=== PATIENT | female | born 1990 | race Caucasian/White ===

== ENCOUNTER 2017-09-22 16:53 | Inpatient (IN) | payer BC, MEDICARE ==
[~2017-09-22] VITALS: Ht 160 cm; Wt 104.5 kg
[2017-09-22] MEDS: LACTATED RINGERS 1,000 ML IV SCH ×2 (01:30→23:31)
[2017-09-22 17:02] VITALS: BP 139/101
[2017-09-22] MEDS ORDERED: PREN1TAB60 PO (17:36)
[2017-09-22 17:49] LABS: BASOPHILS # (AUTO) 0.01 x10^3/uL (0-0.1); BASOPHILS % (AUTO) 0 % (0-1); EOSINOPHILS # (AUTO) 0.06 x10^3/uL (0-0.4); EOSINOPHILS % (AUTO) 1 % (1-7); LYMPHOCYTES # (AUTO) 1.33 x10^3/uL (1-3.4); LYMPHOCYTES % (AUTO) 15 % (22-44); MD NO; MEAN CORPUSCULAR HEMOGLOBIN 27.6 pg (27.0-34.8); MEAN CORPUSCULAR HGB CONC 33.3 g/dL (32.4-35.8); MEAN CORPUSCULAR VOLUME 82.9 fL (80-100); MONOCYTES # (AUTO) 0.67 x10^3/uL (0.2-0.8); MONOCYTES % (AUTO) 7 % (2-9); NEUTROPHILS # (AUTO) 7.12 x10^3/uL (1.8-6.8); NEUTROPHILS % (AUTO) 77 % (42-75); PLATELET COUNT 216 x10^3/uL (130-400); RED CELL DISTRIBUTION WIDTH 13.1 % (9.6-15.2)
[2017-09-22 17:57] LABS: ALANINE AMINOTRANSFERASE 13 U/L (12-78); ALBUMIN 2.8 g/dL (3.4-5.0); ANION GAP 10 mmol/L (5-15); CALCIUM 8.5 mg/dL (8.5-10.1); CHLORIDE 106 mmol/L (98-107); CREATININE 0.51 mg/dL (0.55-1.02)
[2017-09-22 17:59] LABS: ALKALINE PHOSPHATASE 88 U/L (45-117); BILIRUBIN, DIRECT < 0.1 mg/dL (0.1-0.2); BILIRUBIN,TOTAL 0.3 mg/dL (0.2-1.0); TOTAL PROTEIN 6.5 g/dL (6.4-8.2)
[2017-09-22 18:00] LABS: MICROSCOPIC INDICATED
[2017-09-22 18:08] LABS: BARBITURATE SCREEN, URINE Negative (Negative); BENZODIAZEPINE SCREEN, URINE Negative (Negative); CANNABINOID SCREEN, URINE Negative (Negative); COCAINE SCREEN, URINE Negative (Negative); METHADONE SCREEN, URINE Negative (Negative); OPIATE SCREEN, URINE Negative (Negative); PROTEIN/CREATININE RATIO,URINE 169 (0-200); TOTAL PROTEIN,URINE RANDOM 10 mg/dL (0-12)
[2017-09-22 18:10] LABS: AMPHETAMINE SCREEN, URINE Negative (Negative)
[2017-09-22] MEDS ORDERED: OXYTOCIN 30U/ 0.9% NaCL 500ML 500 ML IV SCH (20:23)
[2017-09-22] MEDS ORDERED: LACTATED RINGERS 1,000 ML IV SCH ×2 (20:23→20:30)
[2017-09-22] MEDS ORDERED: MISOPROSTOL 200 MCG TABLET ONE (20:24)
[2017-09-22] MEDS ORDERED: OXYTOCIN 30U/ 0.9% NaCL 500ML 500 ML ONE (20:24)
[2017-09-22] MEDS ORDERED: METOCLOPRAMIDE 5 MG/ML, 2ML ONE (20:27)
[2017-09-22] MEDS ORDERED: SODIUM CITRATE/CITRIC ACID 30 ML UDC ONE ×2 (20:27→20:28)
[2017-09-22] MEDS ORDERED: NEWBORN KIT ONE (20:27)
[2017-09-22] MEDS ORDERED: LACTATED RINGERS 1,000 ML IVBOLUS ONE (20:30)
[2017-09-22] MEDS ORDERED: METOCLOPRAMIDE 5 MG/ML, 2ML IV ONE (20:30)
[2017-09-22] MEDS ORDERED: SODIUM CITRATE/CITRIC ACID 30 ML UDC PO ONE (20:30)
[2017-09-22] MEDS ORDERED: morphine SULFATE/PF 0.5 MG/ML, 10ML ONE (20:58)
[2017-09-22] MEDS ORDERED: OXYTOCIN 10 UNITS/ML, 1ML ONE (20:59)
[2017-09-22] MEDS ORDERED: WATER-INJECTION,STERILE 10 ML IV ONE (20:59)
[2017-09-22] MEDS ORDERED: PHENYLEPHRINE 10 MG/ML ONE (20:59)
[2017-09-22] MEDS ORDERED: EPHEDRINE 50 MG/ML, 1ML ONE (20:59)
[2017-09-22] MEDS ORDERED: CEFAZOLIN 1,000 MG ONE (20:59)
[2017-09-22] MEDS ORDERED: ONDANSETRON 2MG/ML, 2ML ONE ×2 (20:59→22:44)
[2017-09-22 21:05] LABS: BASOPHILS # (AUTO) 0.05 x10^3/uL (0-0.1); BASOPHILS % (AUTO) 0 % (0-1); EOSINOPHILS # (AUTO) 0.06 x10^3/uL (0-0.4); EOSINOPHILS % (AUTO) 1 % (1-7); LYMPHOCYTES % (AUTO) 14 % (22-44); MD NO; MEAN CORPUSCULAR HGB CONC 33.1 g/dL (32.4-35.8); MEAN CORPUSCULAR VOLUME 81.8 fL (80-100); MEAN PLATELET VOLUME 8.2 fL (7.4-10.4); MONOCYTES # (AUTO) 0.64 x10^3/uL (0.2-0.8); MONOCYTES % (AUTO) 6 % (2-9); NEUTROPHILS # (AUTO) 9.14 x10^3/uL (1.8-6.8); NEUTROPHILS % (AUTO) 80 % (42-75); PLATELET COUNT 231 x10^3/uL (130-400); RED BLOOD COUNT 4.48 x10^6/uL (3.82-5.3); RED CELL DISTRIBUTION WIDTH 13.6 % (9.6-15.2)
[2017-09-22] MEDS ORDERED: MISOPROSTOL 200 MCG TABLET PR PRN (22:00)
[2017-09-22] MEDS ORDERED: SIMETHICONE 80 MG CHEW TAB PO PRN (22:00)
[2017-09-22] MEDS ORDERED: morphine SULFATE 10 MG/ML, 1ML IVPush PRN ×2 (22:00)
[2017-09-22] MEDS ORDERED: ONDANSETRON 2MG/ML, 2ML IV PRN (22:00)
[2017-09-22] MEDS ORDERED: MEASLES,MUMPS&RUBELLA VACC/PF 0.5 ML SQ-VACC PRN (22:00)
[2017-09-22] MEDS ORDERED: DIPH,PERTUSS(ACELL),TET VAC/PF NC IM-VACC PRN (22:00)
[2017-09-22] MEDS ORDERED: CARBOPROST TROMETHAMINE 250 MCG/ML, 1ML IM PRN (22:00)
[2017-09-22] MEDS ORDERED: OXYcodone/APAP 5/325MG TABLET PO PRN (22:00)
[2017-09-22] MEDS: OXYTOCIN 30U/ 0.9% NaCL 500ML 500 ML IV SCH (23:31)
[2017-09-23] MEDS ORDERED: KETOROLAC 30 MG/1 ML ONE (00:58)
[2017-09-23] MEDS: KETOROLAC 30 MG/1 ML IV SCH ×4 (01:00→19:04)
[2017-09-23 01:25] VITALS: BP 126/83
[2017-09-23 03:55] VITALS: BP 139/84
[2017-09-23] MEDS: ACETAMINOPHEN 325 MG TABLET PO PRN ×3 (04:58→13:19)
[2017-09-23] MEDS: OXYcodone IR 5MG TABLET PO PRN ×4 (04:58→19:05)
[2017-09-23] MEDS: LACTATED RINGERS 1,000 ML IV SCH ×5 (05:00→21:40)
[2017-09-23 07:16] LABS: BASOPHILS # (AUTO) 0.02 x10^3/uL (0-0.1); BASOPHILS % (AUTO) 0 % (0-1); EOSINOPHILS # (AUTO) 0.03 x10^3/uL (0-0.4); EOSINOPHILS % (AUTO) 0 % (1-7); LYMPHOCYTES # (AUTO) 1.15 x10^3/uL (1-3.4); LYMPHOCYTES % (AUTO) 12 % (22-44); MD NO; MEAN CORPUSCULAR HEMOGLOBIN 26.9 pg (27.0-34.8); MEAN CORPUSCULAR HGB CONC 32.6 g/dL (32.4-35.8); MEAN CORPUSCULAR VOLUME 82.5 fL (80-100); MEAN PLATELET VOLUME 7.9 fL (7.4-10.4); MONOCYTES # (AUTO) 0.51 x10^3/uL (0.2-0.8); MONOCYTES % (AUTO) 5 % (2-9); NEUTROPHILS # (AUTO) 7.71 x10^3/uL (1.8-6.8); NEUTROPHILS % (AUTO) 82 % (42-75); PLATELET COUNT 185 x10^3/uL (130-400); RED BLOOD COUNT 3.73 x10^6/uL (3.82-5.3); RED CELL DISTRIBUTION WIDTH 13.6 % (9.6-15.2)
[2017-09-23] MEDS: OXYTOCIN 30U/ 0.9% NaCL 500ML 500 ML IV SCH ×2 (07:40→17:40)
[2017-09-23 08:00] VITALS: BP 137/90
[2017-09-23] MEDS: DOCUSATE 100 MG CAPSULE PO PRN ×2 (08:51→19:04)
[2017-09-23] MEDS: PRENATAL VIT/IRON/FA 1 EACH TABLET PO SCH (08:51)
[2017-09-23] MEDS: DIPHENHYDRAMINE 50 MG CAPSULE PO PRN ×2 (09:54→21:28)
[2017-09-23 12:00] VITALS: BP 149/93
[2017-09-23 15:17] VITALS: BP_SYST 142; BP_SYST 145; BP_DIAS 92; BP_DIAS 93
[2017-09-23 20:00] VITALS: BP 134/87
[2017-09-24 00:10] VITALS: BP 117/80
[2017-09-24] MEDS: OXYcodone IR 5MG TABLET PO PRN ×2 (00:12→05:55)
[2017-09-24] MEDS: KETOROLAC 30 MG/1 ML IV SCH ×2 (00:54→07:30)
[2017-09-24 03:30] VITALS: BP 121/74
[2017-09-24] MEDS: OXYTOCIN 30U/ 0.9% NaCL 500ML 500 ML IV SCH (03:40)
[2017-09-24] MEDS: LACTATED RINGERS 1,000 ML IV SCH ×2 (03:40→05:40)
[2017-09-24] MEDS: DOCUSATE 100 MG CAPSULE PO PRN (07:30)
[2017-09-24] MEDS: PRENATAL VIT/IRON/FA 1 EACH TABLET PO SCH (07:30)
[2017-09-24] MEDS: ACETAMINOPHEN 325 MG TABLET PO PRN (07:30)
[2017-09-24 07:45] VITALS: BP 138/98
[2017-09-24] MEDS ORDERED: IBUP-1222 PO (09:37)
[2017-09-24] MEDS ORDERED: OXYC-302 PO (09:44)
[2017-09-24] MEDS ORDERED: IBUPROFEN 600 MG TABLET PO PRN (22:00)
== END 2017-09-24 12:00 | disposition home or self-care (01) | DRG 766 ==
LOC: LDOP 16:53 → LDIP 20:28 → 2NW 09-23 01:09
PROVIDERS: ADMIT Obstetrics & Gynecology; ATTEND Obstetrics & Gynecology
PROC: 10D00Z1 Extraction of Products of Conception, Low, Open Approach (ICD-10-PCS; principal; 2017-09-22)
DX: O34.211 Maternal care for low transverse scar from previous cesarean delivery (principal); O13.4 Gestational [pregnancy-induced] hypertension without significant proteinuria, complicating childbirth; M41.9 Scoliosis, unspecified; O75.89 Other specified complications of labor and delivery; Z37.0 Single live birth; Z3A.37 37 weeks gestation of pregnancy; Z81.8 Family history of other mental and behavioral disorders; Z82.3 Family history of stroke; Z90.49 Acquired absence of other specified parts of digestive tract; Z88.2 Allergy status to sulfonamides
CPT/HCPCS: 36415; 80053; 80307; 81001; 82248; 82570; 84156; 84550; 85025; 86850; 86900; 87086; J0690; J1885; J2274; J2405; J2370; J2590; J2765; J7120

== ENCOUNTER → 2017-11-02 | Outpatient (CLI) | payer BC, MEDICARE ==
[~2017-11-02] MED LIST: IBUP-1222 PO; OXYC-302 PO; PREN1TAB60 PO
== END | disposition home or self-care (01) ==
LOC: LAB 18:46
PROVIDERS: ATTEND Obstetrics & Gynecology
DX: Z01.812 Encounter for preprocedural laboratory examination (principal)
CPT/HCPCS: 36415; 84702